=== PATIENT | female | born 1995 | race Two or more races ===

== ENCOUNTER 2021-12-14 11:34 | Emergency (ER) | payer OTHER ==
[~2021-12-14] VITALS: Ht 172.7 cm; Wt 72.0 kg
[2021-12-14] MEDS ORDERED: KETOROLAC 30MG/ML VIAL IM ONE (12:15)
[2021-12-14] MEDS ORDERED: TOPUD MT (13:38)
[2021-12-14] MEDS ORDERED: NAPR-1176 MT (13:38)
[2021-12-14] MEDS ORDERED: CYCL5TAB MT (13:38)
[2021-12-14 13:44] VITALS: BP 129/65
== END 2021-12-14 13:45 | disposition home or self-care (01) ==
LOC: ER 11:36
DX: M54.2 Cervicalgia (principal); M54.6 Pain in thoracic spine; R51.9 Headache, unspecified; M79.672 Pain in left foot; M79.671 Pain in right foot; M25.512 Pain in left shoulder; M25.511 Pain in right shoulder; G89.11 Acute pain due to trauma; V49.49XA Driver injured in collision with other motor vehicles in traffic accident, initial encounter; Y93.89 Activity, other specified; Y92.488 Other paved roadways as the place of occurrence of the external cause
CPT/HCPCS: 71045; 73030; 73630; 81025; 96372; 99284; J1885